=== PATIENT | male | born 1985 | race Two or more races ===

== ENCOUNTER 2019-07-09 20:20 | Emergency (ER) | payer BC ==
[~2019-07-09] VITALS: Ht 180.3 cm; Wt 106.8 kg
[2019-07-09 20:35] VITALS: BP 168/96
[2019-07-09] MEDS ORDERED: UNABLE MC (20:39)
--- NOTE | 2019-07-09 20:41 | PHYS DOC ---
General Adult EDM: Chief Complaint: LACERATION/AVULSION HPI: HPI: Patient is a 33 year old male who presents with superficial laceration with a knife just prior to arrival to the tip of the left 4th finger. It did cut the a small portion of the nail off. laceration if superficial only. Bleeding is contr olled. Review of Systems: Review of Systems: Integument: Denies rash. Laceration.[] Heart Score: Risk Factors: Risk Factors: DM, Current or recent (<one month) smoker, HTN, HLP, family history of CAD, obesity. Risk Scores: Score 0 - 3: 2.5% MACE over next 6 weeks - Discharge Home Score 4 - 6: 20.3% MACE over next 6 weeks - Admit for Clinical Observation Score 7 - 10: 72.7% MACE over next 6 weeks - Early Invasive Strategies Physical Exam: PE: Constitutional: Well developed, well nourished, no acute distress, non-toxic appearance. [] HENT: Normocephalic, atraumatic, bilateral external ears normal, oropharynx moist, no oral exudates, nose normal. [] Eyes: PERRLA, EOMI, conjunctiva normal, no discharge. [] Neck: Normal range of motion, no tenderness, supple, no stridor. [] Cardiovascular:Heart rate regular rhythm, no murmur [] Lungs & Thorax: Bilateral breath sounds clear to auscultation [] Abdomen: Bowel sounds normal, soft, no tenderness, no masses, no pulsatile masses. [] Skin: Warm, dry, no erythema, no rash. Left 4th finger superficial laceration. [] Back: No tenderness, no CVA tenderness. [] Extremities: No tenderness, no cyanosis, no clubbing, ROM intact, no edema. [] Neurologic: Alert and oriented X 3, normal motor function, normal sensory function, no focal deficits noted. [] Psychologic: Affect normal, judgement normal, mood normal. [] EKG: EKG: [] Radiology/Procedures: Radiology/Procedures: [] Course & Med Decision Making: Course & Med Decision Making Pertinent Labs and Imaging studies reviewed. (See chart for details) Patient states she needs a tetanus shot. He has full ROM of all finger joints. Laceration repair Location: Left 4th finger tip, superficial Local anesthesia: none needed Interrupted sutures/Internal sutures: None needed Nerve/ligament/muscle damage: None Cleaning and irrigation: Saline and Chlorhexidine The appropriate timeout was taken. The area was prepped and draped in the usual sterile fashion. The wound was copiously irrigated with normal saline and chlorhexidine. Patient tolerated well without complication. Dressing was applied to the area follow-up education is given to observe for signs and symp toms of infection, bleeding and to follow-up promptly if these occur. Patient can return in 48 hours for a wound recheck. Sutures to be removed in 7 to 10 days. No measurable depth. Skin pink warm and dry. Cap refill less than 3 seconds. Radial pulse strong and present. Can bend at all joints. Rate pain at a 2/10. [] Dragon Disclaimer: Dragon Disclaimer: This electronic medical record was generated, in whole or in part, using a voice recognition dictation system. Departure Departure Impression: Primary Impression: Laceration Disposition: 01 HOME, SELF-CARE Condition: STABLE Referrals: UNKNOWN PCP NAME (PCP) Patient Instructions: Fingertip Laceration Additional Instructions: Keep clean and covered. Use antibiotic ointment over wound. Take ibuprofen or Tylenol for pain. Use ice also for any pain. JAKOB [employer] July 09, 2019 20:41
[2019-07-09] MEDS ORDERED: DIPH,PERTUSS(ACELL),TET VAC/PF 0.5 ML SYRINGE. VAX IM ONE ×2 (20:53→21:30)
[2019-07-09] MEDS ORDERED: NEOMY/BACITR/POLYMYXIN OINT PACKET. TP ONE (21:00)
== END 2019-07-09 21:04 | disposition home or self-care (01) ==
LOC: ER 20:20
DX: S61.215A Laceration without foreign body of left ring finger without damage to nail, initial encounter (principal); W26.0XXA Contact with knife, initial encounter; Y93.89 Activity, other specified; Y92.89 Other specified places as the place of occurrence of the external cause; Y99.8 Other external cause status
CPT/HCPCS: 12001; 90471; 90715; 99283